=== PATIENT | female | born 1965 | race Hispanic/Latino ===

== ENCOUNTER 2016-06-19 12:55 | Day surgery (SDC) ==
[2016-06-19] MEDS ORDERED: DECADRON ONE (13:39)
[2016-06-19] MEDS ORDERED: NS 500 ML ONE (13:41)
[2016-06-19] MEDS ORDERED: IN NS INJ ONE ×2 (13:45→14:00)
[2016-06-19] MEDS ORDERED: DECADRON IV ONE (13:45)
[2016-06-19] MEDS ORDERED: PATIENT'S OWN MED INJ ONE (13:45)
[2016-06-19] MEDS ORDERED: ADRIAMYCIN IV ONE (14:00)
[2016-06-19] MEDS ORDERED: NS IV ONE (14:15)
[2016-06-19] MEDS ORDERED: CYTOXAN IV ONE (14:15)
[2016-06-19] MEDS ORDERED: HEPARIN ONE (14:32)
[2016-06-19 16:25] VITALS: BP 131/70
== END 2016-06-19 16:35 | disposition home or self-care (01) ==
LOC: OR 12:55
PROVIDERS: ATTEND Internal Medicine Hematology & Oncology
DX: Z51.11 Encounter for antineoplastic chemotherapy (principal); C50.411 Malignant neoplasm of upper-outer quadrant of right female breast; Z79.899 Other long term (current) drug therapy; Z79.84 Long term (current) use of oral hypoglycemic drugs
CPT/HCPCS: 96366; 96375; 96411; 96413; J7040; J7050; J9000; J9070

== ENCOUNTER 2016-07-02 08:24 | Day surgery (SDC) ==
[2016-07-02] MEDS ORDERED: DECADRON ONE (09:09)
[2016-07-02] MEDS ORDERED: NS 500 ML ONE (09:10)
[2016-07-02] MEDS ORDERED: PATIENT'S OWN MED INJ ONE (09:30)
[2016-07-02] MEDS ORDERED: IN NS INJ ONE (09:30)
[2016-07-02] MEDS ORDERED: DECADRON IV ONE (09:30)
[2016-07-02] MEDS ORDERED: ADRIAMYCIN IV ONE (10:00)
[2016-07-02] MEDS ORDERED: CYTOXAN IV ONE (10:30)
[2016-07-02] MEDS ORDERED: NS IV ONE (10:30)
[2016-07-02 12:13] VITALS: BP 156/91
[2016-07-02] MEDS ORDERED: HEPARIN ONE (12:13)
== END 2016-07-02 12:25 | disposition home or self-care (01) ==
LOC: INF 08:24
PROVIDERS: ATTEND Internal Medicine Hematology & Oncology
DX: Z51.11 Encounter for antineoplastic chemotherapy (principal); Z79.899 Other long term (current) drug therapy
CPT/HCPCS: 96366; 96375; 96409; 96417; J7040; J7050; J9000; J9070